=== PATIENT | male | born 1950 | race Caucasian/White ===

== ENCOUNTER → 2016-07-15 | Day surgery (SDC) | payer OTHER ==
--- NOTE | 2016-07-11 10:41 | SC.ANESEVA ---
Anesthesia Eval & Plan ([facility]) - Medications/Allergies Allergies: Allergies No Known Allergies Allergy (Verified 12/25/14 12:43) Current Medication List: Reviewed - Focused Physical Exam NPO since: Since after Midnight Mallampati: Class II Thyromental Distance: Greater than 3 Neck: Limited Range of Motion Dental: Normal - no significant findings Cardiovascular/Chest: Normal (RRR no mumurs or rubs.) Respiratory: Lungs clear. negative: Wheezing Any problems with anesthesia, including nausea and vomiting?: No Any relatives with a history of Malignant Hyperthermia?: No Other: Diagnoses VARICOSE VEINS OF UNSP LOWER EXTREMITY W ULCER OF UNSP SITE (07/15/16) LYMPHEDEMA, NOT ELSEWHERE CLASSIFIED (07/15/16) Allergies Allergy/AdvReac Type Severity Reaction Status Date / Time No Known Allergies Allergy Verified 12/25/14 12:43 Home Medications Medication Instructions Recorded Last Taken Type Omeprazole [Prilosec] 20 mg PO DAILY 09/01/13 12/25/14 History Cephalexin Monohydrate [Keflex] 500 mg PO QID #28 cap 12/25/14 Unknown Rx Clindamycin HCl 300 mg PO TID #21 capsule 12/25/14 Unknown Rx Iron Unknown Dose 1 tab PO DAILY 12/25/14 12/25/14 History Multivitamin [One Daily 1 each PO DAILY 12/25/14 12/25/14 History Multivitamin] Height and Weight Patient's weight 113.398 kg BMI 35.9 - Anesthetic Plan Anesthesia Type: General ASA Class: 3 - Focused Review of Systems Cardiac History: Yes: Hx Hypertension No: Hx Cardiac Disorders HEENT: Yes: Hx Vision Problem (wears glasses), Other HEENT Problems Respiratory: Yes: Hx Snoring (before bypass sx), Hx CPAP Dependent (before bypass sx) Gastrointestinal: Yes: Hx Gastrointestinal Disorders, Hx Colonoscopy (2009) Neurological/Musculoskeletal: No: Hx Neurological Disorders Endocrine: Yes: Hx Non-Insulin Dependent Diabetes (before bypass sx) Smoking Status: Former smoker
[2016-07-12 10:40] VITALS: BMI 43.4
[~2016-07-15] MED LIST: DEXAMETHASONE 4 MG/ML VIAL IV PRN; DIAZEPAM 5 MG TAB PO PRN; FENTANYL 100 MCG/2 ML VIAL IV PRN; FENTANYL 100 MCG/2 ML VIAL ONE; HYDROCODONE 5 MG/ACETAMIN 325 MG TAB PO PRN; KETOROLAC TROMETH 30 MG/ML VIAL IV PRN; KETOROLAC TROMETH 30 MG/ML VIAL ONE; LABETALOL 20 MG/4 ML SYRINGE IV ONE; LABETALOL 20 MG/4 ML SYRINGE IV PRN; LR 1,000 ML IV ONE; LR 1,000 ML IV SCH; MIDAZOLAM 2 MG/2 ML VIAL ONE; NS 1,000 ML IV SCH; NS 250 ML IV SCH; ONDANSETRON HCL 4 MG/2 ML VIAL IV PRN; ONDANSETRON HCL 4 MG/2 ML VIAL ONE; PROPOFOL 200 MG/20 ML VIAL IV ONE; SCOPOLAMINE TRANSDERMAL PATCH TOP PRN; hydrALAZINE 20 MG/ML VIAL IV PRN
--- NOTE | 2016-07-15 12:16 | PCM.DCS92 ---
Discharge Outpatient Note Physician Follow up/Referrals: Ed Gonzalez MD [Staff Physician] - 07/23/16 2:40 pm Additional Instructions: Instructions: 07/15/16 * Anesthetics and other medications stay in your system 24 hours, so you may feel drowsy. These effects will wear off. * DO NOT drive a car, operate machinery or power tools, or drink alcoholic beverages for 24 hours following surgery. * DO NOT make any important decisions, such as signing legal documents for 24hours following surgery. * Please take pain medications as directed. * If giving antibiotics take as directed, finishing all pills. * Keep leg elevated as much as possible. * may remove KEYLA wraps tomorrow and shower. Then re-wrap leg with KEYLA wraps * Return to your regular diet as tolerated. * Follow up with office as scheduled Call Physician office to report any of the following: * Elevated temperature * Increased drainage or drainage has foul odor * Increased pain not controlled by regular use of pain medication
--- NOTE | 2016-07-15 12:27 | HIMOPRPT ---
PROCEDURE: DATE OF PROCEDURE: 07/15/16 PREOPERATIVE DIAGNOSES: 1. Right leg venous stasis ulcers 2. Venous insufficiency. 3. Varicose veins. 4. Leg pain. PROCEDURE: Right lower extremity phlebectomy and vein stripping. Ligation of pulmonary fellow veins. Ultrasound vein mapping. SURGEON: Ed Gonzalez MD ANESTHESIA: General. COMPLICATIONS: None. ESTIMATED BLOOD LOSS: 20cc. OPERATIVE NOTE: The patient was placed supine on the operating table. After induction of anesthesia, patient was prepped and draped in the usual fashion. We had mapped and marked the veins of the right lower extremity and the pulmonary fellow veins at the venous stasis ulcers pre-operatively. An incision was made at the ulcer site over the pulmonary fellow veins. Once through the skin, electrocautery was utilized to dissect the tissues leading down to these vessels. We encountered the veins and its underlying pulmonary fellow branch. This was clipped with vascular clips. Some of these branches were ligated. Side branches were all ligated. The wounds were closed using a 3-0 Monocryl in a running fashion. Attention was then given to the lateral ulcer. The veins and their perforating branches were dissected out in the same manner. The perforators were clipped and then ligated. At this point, incisions were made in the lower extremity over the large varicose veins. The underlying veins were isolated and ligated. Then they were dissected free and stripped. This was repeated many times. The wounds were irrigated then closed using a 4-0 Monocryl Dermabond was placed over all the incisions. The patient tolerated this well. Compression dressings were placed on the right lower extremity. Sponge, needle, and instrument counts were correct.
[2016-07-15 12:40] VITALS: TEMP 98.4
[2016-07-15 13:01] VITALS: BP 131/77; PULSE 83
--- NOTE | 2016-07-15 13:29 | SC.ANESPOS ---
Post-Anesthesia Note LOC: Fully Awake Post-Anesthesia Assessment: Awake, Returned to Baseline, Hemodynamically Stable , Pain Control Adequate Phase I & II Recovery Complete: Yes Apparent Anesthesia Complication: No : N - Vital Signs Blood Pressure: 131/77 Pulse: 83 Resp Rate: 16 O2 Sat: 95 Temp: 98.4 F
== END ==
LOC: CPSC 07:24
PROVIDERS: ATTEND Surgery
PROC: 06BR0ZZ (ICD-10-PCS; principal; 2016-07-15 08:30)
DX: I83.018 Varicose veins of right lower extremity with ulcer other part of lower leg (principal); L97.819 Non-pressure chronic ulcer of other part of right lower leg with unspecified severity; I87.2 Venous insufficiency (chronic) (peripheral); I89.0 Lymphedema, not elsewhere classified; I10 Essential (primary) hypertension; E11.9 Type 2 diabetes mellitus without complications; Z87.891 Personal history of nicotine dependence; Z79.899 Other long term (current) drug therapy
CPT/HCPCS: 37766; 37785; J1885; J2250; J2405; J2704; J3010; J3490